=== PATIENT | male | born 1990 | race Two or more races ===

== ENCOUNTER 2021-01-06 08:52 | Emergency (ER) | payer SELFPAY ==
[~2021-01-06] VITALS: Ht 182.9 cm; Wt 120.0 kg
[2021-01-06 10:35] LABS: BASOPHILS % 0.5 % (0.0-2.0); EOSINOPHILS % 0.7 % (0.0-5.0); HEMATOCRIT. 43.8 % (42.0-52.0); HEMOGLOBIN. 14.6 g/dL (14.0-18.0); LYMPHOCYTES % 15.5 % (20.0-50.0); MEAN CORPUSCULAR HEMOGLOBIN 28.1 pg (28.0-32.0); MONOCYTES % 6.7 % (2.0-8.0); NEUTROPHILS % 76.6 % (40.0-76.0); PLATELET 332 x1000/uL (130-400); RED BLOOD CELL COUNT 5.22 mill/uL (4.7-6.1)
[2021-01-06 10:38] LABS: CHLORIDE 107 mEq/L (98-107)
[2021-01-06 10:42] LABS: ETHANOL BLOOD < 10 mg/dL
[2021-01-06 10:44] LABS: PROTHROMBIN TIME 10.4 sec (9.6-11.0)
[2021-01-06 12:08] LABS: CLARITY URINE CLEAR (CLEAR); COLOR URINE YELLOW (YELLOW); KETONES URINE NEGATIVE (NEGATIVE); LEUKOCYTE ESTERASE URINE NEGATIVE (NEGATIVE); NITRITE URINE NEGATIVE (NEGATIVE); OCCULT BLOOD URINE TRACE (NEGATIVE); PH URINE 5.5 (4.5-8.0); PROTEIN URINE NEGATIVE (NEGATIVE); SPECIFIC GRAVITY URINE 1.022 (1.005-1.030); UROBILINOGEN URINE 0.2 E.U./dL (0.2-1.0)
[2021-01-06 12:38] LABS: *AMPHETAMINES SCREEN URINE NEGATIVE (NEGATIVE); *BARBITURATES SCREEN URINE NEGATIVE (NEGATIVE); CANNABINOID URINE SCREEN NEGATIVE (NEGATIVE); PHENCYCLIDINE URINE SCREEN NEGATIVE (NEGATIVE)
[2021-01-06 12:39] LABS: *BENZODIAZEPINES SCREEN URINE NEGATIVE (NEGATIVE); *COCAINE SCREEN URINE NEGATIVE (NEGATIVE); METHADONE URINE SCREEN NEGATIVE (NEGATIVE); OPIATES URINE SCREEN NEGATIVE (NEGATIVE)
[2021-01-06] MEDS ORDERED: MAGNESIUM/ALUMINUM HYDROXIDE/SIMETHICONE 30ML UDC PO STA (13:02)
[2021-01-06] MEDS ORDERED: VISCOUS LIDOCAINE 2% 15 ML UDC MM STA (13:02)
[2021-01-06] MEDS ORDERED: OMEP20CA14 MT (13:40)
[2021-01-06 14:02] VITALS: BP 136/78
== END 2021-01-06 14:04 | disposition home or self-care (01) ==
LOC: ER 09:18
DX: R10.13 Epigastric pain (principal)
CPT/HCPCS: 36415; 76705; 80053; 80305; 80320; 81003; 85025; 93005; 99285; G0480